=== PATIENT | female | born 1935 | race Caucasian/White ===

== ENCOUNTER → 2017-04-15 | Outpatient (CLI) | payer OTHER | LOC: BHFA 14:00 | PROVIDERS: ATTEND Internal Medicine Cardiovascular Disease | DX: I48.91 Unspecified atrial fibrillation (principal) ==

== ENCOUNTER → 2017-07-22 | Outpatient (CLI) | payer OTHER | LOC: FIMAGING 13:10 | PROVIDERS: ATTEND Internal Medicine Cardiovascular Disease | DX: Z01.818 Encounter for other preprocedural examination (principal); I51.7 Cardiomegaly; I50.9 Heart failure, unspecified ==

== ENCOUNTER 2017-07-28 11:21 | Inpatient (IN) | payer OTHER ==
[2017-07-28] MEDS ORDERED: ASPIRIN EC 325 MG TAB PO ONE ×2 (11:46→12:03)
[2017-07-28] MEDS ORDERED: diphenhydrAMINE 25 MG CAP PO ONE ×2 (11:46→12:02)
[2017-07-28] MEDS ORDERED: DIAZEPAM 5 MG TAB PO ONE (11:46)
[2017-07-28] MEDS ORDERED: FAMOTIDINE 20 MG TAB PO ONE (11:46)
[2017-07-28] MEDS ORDERED: NS 1,000 ML IV ONE (11:46)
--- NOTE | 2017-07-28 11:59 | CPEKG ---
Heart Rate: 86 RR Interval: 698 QRSD Interval: 84 QT Interval: 388 QTC Interval: 464 QRS Mico: 89 T Wave Mico: 5 EKG Severity - ABNORMAL ECG - EKG Impression: ATRIAL FIBRILLATION, V-RATE 66-95 EKG Impression: BORDERLINE RIGHT AXIS DEVIATION Electronically Signed By: Rubio Bradshaw 29-Jul-2017 08:50:50
[2017-07-28] MEDS ORDERED: FAMOTIDINE 20 MG TAB ONE (12:03)
[2017-07-28 12:23] LABS: PLATELET COUNT 246 10^3/uL (150-400)
[2017-07-28 12:32] LABS: INR 1.06 (0.83-1.16)
[2017-07-28] MEDS ORDERED: LIDOCAINE 1% 300 MG/30 ML SDV ONE (12:37)
[2017-07-28] MEDS ORDERED: fentaNYL 100 MCG/2 ML INJ ONE (12:38)
[2017-07-28] MEDS ORDERED: MIDAZOLAM 2 MG/2 ML VIAL ONE (12:38)
[2017-07-28] MEDS ORDERED: IOPAMIDOL (ISOVUE-370) 150 ML BTL IV ONE (12:38)
--- NOTE | 2017-07-28 12:58 | PDGENHP ---
History and Physical - Chief Complaint MR, TR, LSPAF - History of Present Illness 82F with severe MR,TR and LSPAF with planned OHS on 07/29 here today for risk stratification. TTE notable for severe BL atrial enlargement, LVEF of 58%, and moderate pulmonary HTN (PA pressure of 50 mmHg). The Pt was last seen in 05/17 with c/o WATSON and BLE edema and pt states these symptoms have been stable. She recently travelled to [place] with her without difficulty. She denies weakness, CP, orthopnea, PND or abdominal distension. She stopped taking Eliquis on 07/22 in preparation for surgery. History Information - Allergies/Home Medication List Allergies/Adverse Reactions: Penicillins Allergy (Mild, Verified 07/21/17 15:21) Itching latex Allergy (Verified 07/21/17 16:46) Rash lisinopril Allergy (Verified 07/21/17 16:44) DIZZINESS Sulfa (Sulfonamide Antibiotics) Allergy (Verified 07/21/17 16:44) RASH AND ITCHING Home Medications: Apixaban [Eliquis] 5 mg PO BID 07/21/17 [Last Taken Unknown] Furosemide [Lasix 20 MG (*)] 20 mg PO DAILY 07/21/17 [Last Taken Unknown] Levothyroxine Sodium 50 mcg PO Q2D 07/21/17 [Last Taken Unknown] Levothyroxine Sodium 75 mcg PO Q2D 07/21/17 [Last Taken Unknown] Metoprolol Succinate 100 mg PO DAILY 07/21/17 [Last Taken Unknown] Potassium Cl [Klor-Con] 10 meq PO DAILY 07/21/17 [Last Taken Unknown] I have personally reviewed and updated: medical history, social history, surgical history - Past Medical History Additional medical history: as per HPI, CHF class 3 with preseved LV function, mild-moderate AI - Surgical History Reports: no pertinent surgical hx - Social History Smoking Status: Never smoked Alcohol Use: None Drug Use: None Review of Systems Review of Systems: ROS: 10pt was reviewed & negative except for what was stated in HPI & below Physical Exam Physical Exam: Constitutional: no apparent distress, appears nourished, not in pain Eyes: anicteric sclera Ears, Nose, Mouth, Throat: moist mucous membranes, hearing normal, no oral mucosal ulcers Cardiovascular: irregularly irregular Respiratory: no respiratory distress, no rales or rhonchi, clear to auscultation Gastrointestinal: soft, non-tender abdomen Genitourinary: no bladder fullness Skin: warm, normal color Musculoskeletal: full muscle strength Neurologic: AAOx3, sensation intact bilaterally Psychiatric: interacting appropriately, not anxious, not encephalopathic, thought process linear Lab Data & Imaging Review 07/28/17 12:00 07/28/17 12:00 WBC 4.01 10^3/uL (3.80-9.50) 07/28/17 12:00 RBC 4.09 10^6/uL (4.18-5.33) L 07/28/17 12:00 Hgb 14.1 g/dL (12.6-16.3) 07/28/17 12:00 Hct 40.7 % (38.0-47.0) 07/28/17 12:00 MCV 99.5 fL (81.5-99.8) 07/28/17 12:00 MCH 34.5 pg (27.9-34.1) H 07/28/17 12:00 MCHC 34.6 g/dL (32.4-36.7) 07/28/17 12:00 RDW 12.1 % (11.5-15.2) 07/28/17 12:00 Plt Count 246 10^3/uL (150-400) 07/28/17 12:00 MPV 9.9 fL (8.7-11.7) 07/28/17 12:00 Neut % (Auto) 43.2 % (39.3-74.2) 07/28/17 12:00 Lymph % (Auto) 44.4 % (15.0-45.0) 07/28/17 12:00 Liberty % (Auto) 8.0 % (4.5-13.0) 07/28/17 12:00 Eos % (Auto) 3.7 % (0.6-7.6) 07/28/17 12:00 Baso % (Auto) 0.5 % (0.3-1.7) 07/28/17 12:00 Nucleat RBC Rel Count 0.0 % (0.0-0.2) 07/28/17 12:00 Absolute Neuts (auto) 1.73 10^3/uL (1.70-6.50) 07/28/17 12:00 Absolute Lymphs (auto) 1.78 10^3/uL (1.00-3.00) 07/28/17 12:00 Absolute Monos (auto) 0.32 10^3/uL (0.30-0.80) 07/28/17 12:00 Absolute Eos (auto) 0.15 10^3/uL (0.03-0.40) 07/28/17 12:00 Absolute Basos (auto) 0.02 10^3/uL (0.02-0.10) 07/28/17 12:00 Absolute Nucleated RBC 0.00 10^3/uL (0-0.01) 07/28/17 12:00 Immature Gran % 0.2 % (0.0-1.1) 07/28/17 12:00 Immature Gran # 0.01 10^3/uL (0.00-0.10) 07/28/17 12:00 PT 14.0 SEC (12.0-15.0) 07/28/17 12:00 INR 1.06 (0.83-1.16) 07/28/17 12:00 Sodium 137 mEq/L (135-145) 07/28/17 12:00 Potassium 4.3 mEq/L (3.5-5.2) 07/28/17 12:00 Chloride 98 mEq/L (97-110) 07/28/17 12:00 Carbon Dioxide 28 mEq/l (22-31) 07/28/17 12:00 Anion Gap 11 mEq/L (8-16) 07/28/17 12:00 BUN 12 mg/dL (7-23) 07/28/17 12:00 Creatinine 0.8 mg/dL (0.6-1.0) 07/28/17 12:00 Estimated GFR > 60 07/28/17 12:00 Glucose 92 mg/dL (70-100) 07/28/17 12:00 Calcium 9.5 mg/dL (8.5-10.4) 07/28/17 12:00 Magnesium 1.8 mg/dL (1.6-2.3) 07/28/17 12:00 Triglycerides 77 mg/dL (35-135) 07/28/17 12:00 Cholesterol 184 mg/dL (140-220) 07/28/17 12:00 Cholesterol Risk Factr 0.4 (0.2-1.0) 07/28/17 12:00 LDL Cholesterol, Calc 85 mg/dL (80-100) 07/28/17 12:00 LDL Risk Factor 0.4 (0.2-1.0) 07/28/17 12:00 VLDL Cholesterol 15 mg/dL (8-25) 07/28/17 12:00 Non-HDL Cholesterol 100 mg/dL (90-129) 07/28/17 12:00 HDL Cholesterol 84 mg/dL (40-85) 07/28/17 12:00 LDL/HDL Ratio 1.01 RATIO (1.00-3.22) 07/28/17 12:00 Cholesterol/HDL Ratio 2.19 RATIO (1.00-4.44) 07/28/17 12:00 Patient ABO/Rh O POSITIVE 07/28/17 12:00 Antibody Screen NEGATIVE 07/28/17 12:00 Chest X-Ray results: no infiltrate, other (cardiomegaly) Visualized and Interpreted EKG results: Yes EKG additional interpertation: AF Assessment & Plan Assessment: 82F with MR, TR, and LSPAF Plan: - MV repair/replacement, TV repair, CM 4, possible CABG on 07/29 - LHC and carotid US pending - Will place pre-op orders - NPO after midnight - Consents to be obtain in AM
--- NOTE | 2017-07-28 13:22 | PDGENHP ---
History & Physical Chief Complaint: WATSON History of Present Illness: 81 year old female admitted for [facility] today in anticipation of MVR and Tricuspid repair tomorrow with Dr. Martinez. Also hx of AFib. She stopped Eliquis on July 22, 2017 Pertinent Past, Social, Family History: PMH: Aib, HTN, Mr. TR PUlm htn. Soc: , no smoker Relevant Physical Exam: Awake, Alert Appropriate
--- NOTE | 2017-07-28 13:23 | PDPROPOC ---
Sedation Plan of Care Sedation Plan of Care: vital signs stable, mental status noted, patient educated of risks, benefits, alternatives, patient can tolerate sedation ASA Classification: ASA 2 Planned drugs: fentanyl, midazolam Mallampati Score: Class 2 Mallampati Reference Image: Patient passed 3-3-2 rule?: Yes
[2017-07-28] MEDS ORDERED: IOPAMIDOL (ISOVUE-300) 50 ML VIAL ONE (14:19)
[2017-07-28] MEDS ORDERED: ONDANSETRON 4 MG/2 ML VIAL IVP PRN (14:53)
[2017-07-28] MEDS ORDERED: ATROPINE SULFATE 1 MG/10 ML SYR IVP PRN (14:53)
[2017-07-28] MEDS ORDERED: HYDROCODONE/APAP 5/325 TAB PO PRN (14:53)
[2017-07-28] MEDS ORDERED: OXYCODONE/APAP 5/325 TAB PO PRN (14:53)
[2017-07-28] MEDS ORDERED: NITROGLYCERIN 0.4 MG BTL SL PRN (14:53)
--- NOTE | 2017-07-28 15:11 | CPIP ---
[f rep st] INVASIVE CARDIAC PROCEDURE DATE OF PROCEDURE: 07/28/2017 PROCEDURE PERFORMED: Left heart catheterization. INDICATION FOR PROCEDURE: Preoperative left heart catheterization in anticipation of mitral and tric uspid valve repair and potential Venegas or MAZE procedure in the setting of severe mitral and tricuspid regurgitation and atrial fibrillation. PROCEDURE: After informed consent was obtained, patient was brought to the cardiac catheterization l where she was prepped and draped in sterile fashion. Using 1% lidocaine, the right groin was anes thetized. Using the micropuncture modified Seldinger technique, a 6-Luxembourgish catheter was placed in th e right common femoral artery without complications. A JL4 catheter was used to take images of the l t coronary anatomy in multiple projections. Of note, there were separate ostia for the LAD as well as circumflex vessel. A JL4 catheter was exchanged over a guidewire for a JR4 catheter. JR4 cathet er was used to cannulate the right coronary artery. Images were obtained of the right coronary arter y. The JR4 catheter was exchanged over a guidewire for angled pigtail catheter. Angled pigtail cath eter was used to cross the aortic valve. LVEDP was assessed, left ventriculogram was performed. Aor tic valve gradient was assessed on pull-back. Angled pigtail catheter was removed over a guidewire w ithout complications. Imaging of the right common femoral artery sheath site was obtained demonstrat ing appropriate placement of the catheter above the bifurcation and below the inguinal ligament with no evidence of trauma to the vessel. Subsequently, Angio-Seal device was deployed successfully post procedure. FINDINGS: 1. There were separate ostia for the LAD and circumflex vessel. Left anterior descending artery giv es off multiple septal perforators. There was no evidence of coronary disease within the left anteri or descending. There are small first and second diagonal branches. 2. Circumflex vessel is a large dominant vessel with a large 1st obtuse marginal branch. There is n o evidence of coronary disease within the circumflex or large obtuse marginal branch. 3. The right coronary artery is a small nondominant vessel with no evidence of coronary disease. 4. Left ventriculogram demonstrates normal left ventricular function with LVEF 60% to 65%. HEMODYNAMICS: LVEDP 19 mmHg, LVEF 66% to 5%. Aortic valve gradient none. Right common femoral artery angiography site above the bifurcation, below the inguinal ligament and A ngio-Seal deployed successfully. CONCLUSION: 1. Normal coronary arteries. 2. Separate ostia for left anterior descending and circumflex. 3. Normal left ventricular function. 4. Left ventricular end-diastolic pressure 19 mmHg. PLAN: Patient will not require any bypass grafting in surgery tomorrow for mitral valve and tricuspi d valve procedure. /[id number]/MODL
--- NOTE | 2017-07-28 19:14 | PDMN ---
Medical Necessity Medical necessity: [facility] IP only surgery, cpt [id number], [id number], [id number] Cardiovascular Surgery
[2017-07-28] MEDS ORDERED: CHLORHEXIDINE GLUC HIBICLENS 118 ML BTL TP SCH (21:00)
[2017-07-28] MEDS: MUPIROCIN 2% 22 GM OINT NS SCH (21:22)
[2017-07-28] MEDS: SENNOSIDES/DOCUSATE SODIUM TAB PO SCH (21:23)
[2017-07-28] MEDS ORDERED: hydrALAZINE 20 MG/ML VIAL IVP PRN (21:47)
[2017-07-29] MEDS ORDERED: SODIUM BICARBONATE 20 MEQ, LIDOCAINE 1% 10 ML in NORMOSOL-R 1,000 ML MISC ONE (06:00)
[2017-07-29] MEDS ORDERED: AMINOCAPROIC ACID 5 GM/20 ML VIAL IV ONE (06:00)
[2017-07-29] MEDS ORDERED: MANNITOL 25% 12.5 GM/50 ML VIAL IVP ONE (06:00)
[2017-07-29] MEDS ORDERED: CITRATE DEXTROSE SOLN 500 ML BAG MISC ONE (06:00)
[2017-07-29] MEDS ORDERED: INSULIN REGULAR HUMAN 100 UNIT in NS 100 ML IV ONE (06:00)
[2017-07-29] MEDS ORDERED: PHENYLEPHRINE HCL 50 MG in NS 250 ML IV ONE (06:00)
[2017-07-29] MEDS ORDERED: ceFAZolin 2 GM/SWFI 2 GM/20 ML SYR IVP ONE (06:00)
[2017-07-29] MEDS ORDERED: NOREPINEPHRINE BITARTRATE 16 MG in NS 250 ML IV ONE (06:00)
[2017-07-29] MEDS ORDERED: ISOFLURANE 100 ML BOTTLE IH ONE (06:53)
[2017-07-29] MEDS: MUPIROCIN 2% 22 GM OINT NS SCH ×2 (06:57→20:51)
[2017-07-29] MEDS ORDERED: MINERAL OIL 10 ML VIAL ONE (06:58)
[2017-07-29] MEDS ORDERED: LR 1,000 ML IV ONE (07:02)
[2017-07-29] MEDS ORDERED: MIDAZOLAM 2 MG/2 ML VIAL IVP ONE (07:08)
--- NOTE | 2017-07-29 07:08 | PDANEPAE ---
ANE History of Present Illness 82 yo for mvr/tvr ANE Past Medical History - Cardiovascular History Hx Hypertension: Yes Hx Arrhythmias: Yes Hx Chest Pain: No Hx Coronary Artery / Peripheral Vascular Disease: No Hx CHF / Valvular Disease: Yes Hx Palpitations: No Cardiovascular History Comment: ATRIAL FIB DX 2015/CARDIOVERSION 03/2017. PULM HTN - Pulmonary History Hx COPD: No Hx Asthma/Reactive Airway Disease: No Hx Recent Upper Respiratory Infection: No Hx Oxygen in Use at Home: No Hx Sleep Apnea: No Sleep Apnea Screening Result - Last Documented: Negative - Neurologic History Hx Cerebrovascular Accident: No Hx Seizures: No Hx Dementia: No - Endocrine History Hx Diabetes: No Endocrine History Comment: HYPOTHYROID - Renal History Hx Renal Disorders: No - Liver History Hx Hepatic Disorders: No - Neurological & Psychiatric Hx Hx Neurological and Psychiatric Disorders: No - Cancer History Hx Cancer: No - Congenital Disorder History Hx Congenital Disorders: No - GI History Hx Gastrointestinal Disorders: No - Other Health History Other Health History: LOWER LEG EDEMA - Chronic Pain History Chronic Pain: No - Surgical History Prior Surgeries: VAGINAL HYSTERECTOMY ANE Review of Systems Review of Systems: - Exercise capacity METS (RN): 3 METS ANE Patient History - Allergies Allergies/Adverse Reactions: Penicillins Allergy (Mild, Verified 07/21/17 15:21) Itching latex Allergy (Verified 07/21/17 16:46) Rash lisinopril Allergy (Verified 07/21/17 16:44) DIZZINESS Sulfa (Sulfonamide Antibiotics) Allergy (Verified 07/21/17 16:44) RASH AND ITCHING - Home Medications Home medications: home medication list seen and reviewed Home Medications: Apixaban [Eliquis] 5 mg PO BID 07/21/17 [Last Taken Unknown] Furosemide [Lasix 20 MG (*)] 20 mg PO DAILY 07/21/17 [Last Taken Unknown] Levothyroxine Sodium 50 mcg PO Q2D 07/21/17 [Last Taken Unknown] Levothyroxine Sodium 75 mcg PO Q2D 07/21/17 [Last Taken Unknown] Metoprolol Succinate 100 mg PO DAILY 07/21/17 [Last Taken Unknown] Potassium Cl [Klor-Con] 10 meq PO DAILY 07/21/17 [Last Taken Unknown] Herbals/Supplements -Info Only 1 ea PO DAILY 07/28/17 [Last Taken Unknown] - NPO status NPO Since - Liquids (Date): 07/29/17 NPO Since - Liquids (Time): 00:00 NPO Since - Solids (Date): 07/29/17 NPO Since - Solids (Time): 00:00 - Smoking Hx Smoking Status: Never smoked - Alcohol Use Alcohol Use: None ANE Labs/Vital Signs - Labs Result Diagrams: 07/28/17 12:00 07/29/17 04:05 - Vital Signs Blood Pressure: 153/97 Heart Rate: 84 Respiratory Rate: 18 O2 Sat (%): 95 Height: 5 ft Weight: 53.8 kg ANE Physical Exam - Airway Neck exam: FROM Mallampati Score: Class 2 Mouth exam: normal dental/mouth exam - Pulmonary Pulmonary: no respiratory distress - Cardiovascular Cardiovascular: regular rate and rhythym - ASA Status ASA Status: IV ANE Anesthesia Plan Anesthesia Plan: general endotracheal anesthesia Lines/Monitors: arterial line, central line, YONG
[2017-07-29] MEDS ORDERED: MIDAZOLAM 2 MG/2 ML VIAL ONE (07:13)
[2017-07-29] MEDS ORDERED: REMIFENTANIL HCL 1 MG VIAL ONE (07:16)
[2017-07-29] MEDS ORDERED: fentaNYL 250 MCG/5 ML INJ ONE (07:17)
[2017-07-29] MEDS ORDERED: PROPOFOL/EMULSION 500 MG/50 ML BOTTLE IV ONE (07:17)
[2017-07-29] MEDS ORDERED: AMIODARONE HCL 150 MG/3 ML VIAL ONE ×2 (07:44→07:45)
[2017-07-29] MEDS ORDERED: CALCIUM CHLORIDE 1 GM/10 ML INJ ONE ×2 (07:44→07:45)
[2017-07-29] MEDS ORDERED: HEPARIN 10,000 UNIT/10 ML MDV (1,000 UNIT/ML) ONE ×2 (07:44→07:45)
[2017-07-29] MEDS ORDERED: PROTAMINE SULFATE 50 MG/5 ML VIAL IVP ONE (07:44)
[2017-07-29] MEDS ORDERED: MILRINONE/DEXTROSE/100 ML BAG IV ONE (07:44)
[2017-07-29] MEDS ORDERED: DOPamine/DEXTROSE/250 ML BAG IV ONE (07:44)
[2017-07-29] MEDS ORDERED: niCARdipine/NACL/200 ML BAG IV ONE (07:44)
[2017-07-29] MEDS ORDERED: NA BICARBONATE 50 MEQ/50 ML VIAL ONE (07:44)
[2017-07-29] MEDS ORDERED: ADENOSINE 6 MG/2 ML VIAL ONE (07:44)
[2017-07-29] MEDS ORDERED: LIDOCAINE 2% 100 MG/5 ML SYR ONE (07:45)
[2017-07-29] MEDS ORDERED: CITRATE DEXTROSE SOLN 500 ML BAG ONE (07:45)
[2017-07-29] MEDS ORDERED: ALBUMIN 5% 250 ML BOTTLE IV ONE (07:45)
[2017-07-29] MEDS ORDERED: ceFAZolin 1 GM VIAL ONE (07:45)
[2017-07-29] MEDS ORDERED: methylPREDNISolone SOD SUCC 1 GM/8 ML VIAL ONE (07:46)
[2017-07-29] MEDS ORDERED: MAGNESIUM SULFATE 1 GM/2 ML VIAL ONE (07:46)
[2017-07-29] MEDS ORDERED: DEXMEDETOMIDINE HCL 400 MCG in NS 100 ML IV SCH (09:00)
[2017-07-29] MEDS ORDERED: ONDANSETRON 4 MG/2 ML VIAL ONE (10:10)
[2017-07-29] MEDS ORDERED: DEXAMETHASONE 4 MG/ML VIAL ONE (10:10)
[2017-07-29] MEDS ORDERED: ROCURONIUM 100 MG/10 ML VIAL ONE (10:10)
[2017-07-29] MEDS ORDERED: SUGAMMADEX SODIUM 200 MG/2 ML VIAL IVP ONE (10:11)
[2017-07-29] MEDS ORDERED: DOBUTamine 500 MG in D5W 250 ML IV SCH (10:30)
[2017-07-29] MEDS ORDERED: MAGNESIUM SULF 2 GM/WATER 50 ML BAG IV ONE (11:16)
[2017-07-29] MEDS ORDERED: MAGNESIUM SULF 2 GM/WATER 50 ML IV ONE (11:51)
[2017-07-29] MEDS ORDERED: ACETAMINOPHEN 650 MG SUPP PR PRN (11:51)
[2017-07-29] MEDS ORDERED: MEPERIDINE 25 MG/ML SYR IVP PRN (11:51)
[2017-07-29] MEDS ORDERED: ONDANSETRON 4 MG/2 ML VIAL IVP PRN (11:51)
[2017-07-29] MEDS ORDERED: SODIUM CL NASAL 45 ML BTL EACHNARE PRN (11:51)
[2017-07-29] MEDS ORDERED: METOCLOPRAMIDE 10 MG/2 ML VIAL IVP PRN (11:51)
[2017-07-29] MEDS ORDERED: LACTULOSE 20 GM/30 ML UDCUP PO PRN (11:51)
[2017-07-29] MEDS ORDERED: PANTOPRAZOLE SODIUM 40 MG VIAL IVP ONE ×2 (11:51→17:30)
[2017-07-29] MEDS ORDERED: MAGNESIUM HYDROXIDE 30 ML UDCUP PO PRN (11:51)
[2017-07-29] MEDS ORDERED: CEPACOL LOZENGE PO PRN (11:51)
[2017-07-29] MEDS ORDERED: D50W 25 GM/50 ML SYR IVP PRN (11:51)
[2017-07-29] MEDS ORDERED: POLYETHYLENE GLYCOL 3350 17 GM PKT PO PRN (11:51)
[2017-07-29] MEDS ORDERED: ACETAMINOPHEN 325 MG TAB PO PRN (11:51)
[2017-07-29] MEDS ORDERED: BISACODYL 10 MG SUPP PR PRN (11:51)
[2017-07-29] MEDS ORDERED: ONDANSETRON DISINTEGRATING 4 MG TAB PO PRN (11:51)
[2017-07-29] MEDS ORDERED: NS 1,000 ML IV SCH (12:00)
[2017-07-29] MEDS ORDERED: INSULIN REGULAR HUMAN 100 UNIT in NS 100 ML IV SCH (12:00)
--- NOTE | 2017-07-29 12:41 | GOP ---
[f rep st] OPERATIVE REPORT DATE OF OPERATION: 07/29/2017 SURGEON: Acosta Martinez DO WAREHOUSE CLERK: Lewis Hensley PA-C. ANESTHESIA: Bear Vera MD. PREOPERATIVE DIAGNOSIS: 1. 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 2. Longstanding persistent atrial fibrillation. POSTOPERATIVE DIAGNOSIS: 1. 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 2. Longstanding persistent atrial fibrillation. PROCEDURE PERFORMED: 1. Venegas Maze IV with testing utilizing radiofrequency and cryoablation. 2. Mitral ring annuloplasty with a #28 Physio II annuloplasty ring. 3. Tricuspid valve annuloplasty with a #28 Magana annuloplasty ring. 4. AtriClip the left atrial appendage. FINDINGS: Patient presented with congestive heart failure and severe tricuspid and mjiigvlc-dw-csoir e mitral insufficiency with moderate aortic insufficiency. She was treated for congestive heart fail ure medically and referred for surgical intervention with a history of longstanding atrial fibrillati on. DESCRIPTION OF PROCEDURE: She was consented for surgery, brought to the operating room, intubated. Monitoring lines were placed. She was prepped and draped in sterile classical manner. Sternotomy wa s performed. The patient was heparinized, cannulated in ascending aorta and bicaval cannulas with ta pes. We then did testing on both left and right with evidence of exit and entrance conduction after cardioverting the patient to sinus rhythm. We then initiated cardiopulmonary bypass and encircled cornelius th pulmonary veins prior to arresting the heart and performed 3 multiple overlapping lesion sets that ultimately all 3 ended with less than 5 seconds until transmurally was confirmed with radiofrequency ablation. We then retested those both for entrance and exit block. We then arrested the heart with antegrade and retrograde cardioplegia, topical hypothermia, and systemic cooling. We then marked th e terminus of the circumflex and the right coronary artery for coronary sinus ablation. The left atr ium was opened. Incisions were extended a ways over toward the left superior and left inferior pulmo nary veins. We then completed those lesion sets with a radiofrequency ablation. We then performed i sthmus and coronary sinus lesions with 2 minutes of cryo each overlapping both with the retrograde re moved. We then replaced a retractor and exposed the mitral valve. It was somewhat thickened and was predominantly annular dilatation with central regurgitation. Annuloplasty sutures were placed. A 2 8 ring was sized and secured with Cor-Knots. Testing of the ventricle revealed no regurgitation. Th e left atrial incision was then closed with Prolene. A vent was placed across the mitral valve. We then retracted the heart over and excised the tip of the appendage, placed a radiofrequency clamp acr oss the atrium into the left superior pulmonary vein, and ablated until less than 5 seconds. A 35 mm AtriClip was placed and secured with 4-0 Prolene to prevent any bleeding. We then removed the cross -clamp in Trendelenburg with the LV sump on and exposed the tricuspid valve after securing caval tape s and opening the atrium in a vertical atriotomy. This was extended down to the septum, and then sup erior and inferior vena caval radiofrequency lines were performed as was a free wall line. We then c ana ablated across the tricuspid isthmus while the clamp was off. A retractor was placed and annulop lasty sutures were then placed circumferentially. The valve was slightly thickened and dilated. We sized the patient for a 28 ring, which was secured in place without difficulty utilizing Cor-Knots. Distention of the right ventricle revealed no regurgitation at that point. The right atriotomy was c losed in a two-layer fashion. The patient was kept in Trendelenburg with the LV sump on, and once sp ontaneous cardiac activity was noted to resume, we removed the LV sump. There was no further air reny ntified in Trendelenburg. The patient was then weaned in sinus rhythm without difficulty. Evaluatio n of the valves revealed no regurgitation and biventricular function remained unchanged. We watched the patient off pump for a matter of time until we were satisfied she was stable. We then reversed t he heparin with protamine. She was somewhat coagulopathic and blood products were given. We spent s ome time making sure she was dry. We opened the incision along the right pericardium above the phren ic nerve by 3 cm in order to allow any potential bleeding to drain into the right pleura and avoid ta mponade. A right pleural drain and a mediastinal drain were placed. The sternum was closed in stand ernesto fashion. Dressings were applied. Patient was returned to ICU in stable condition. /[id number]/MODL
[2017-07-29] MEDS ORDERED: niCARdipine/NACL 200 ML IV SCH (13:00)
[2017-07-29] MEDS: ALBUMIN 5% 250 ML IV PRN ×2 (13:15→13:51)
[2017-07-29] MEDS: ceFAZolin 2 GM/SWFI 2 GM/20 ML SYR IVP SCH ×2 (13:58→22:22)
[2017-07-29] MEDS ORDERED: ceFAZolin 2 GM/DEXTROSE 100 ML IV SCH (14:00)
[2017-07-29] MEDS: POTASSIUM Cl (KCl) 50 ML IV PRN ×3 (14:09→18:01)
[2017-07-29] MEDS ORDERED: NALOXONE HCL 0.4 MG/ML INJ ONE (14:27)
[2017-07-29] MEDS: KETOROLAC 15 MG/1 ML SDV IVP PRN ×2 (14:44→20:50)
[2017-07-29] MEDS ORDERED: NALOXONE HCL 0.4 MG/ML INJ IVP ONE (14:45)
--- NOTE | 2017-07-29 14:53 | POSTANESTH ---
Post Anesthetic Evaluation Cardiovascular Status: Normal, Stable Respiratory Status: Other, See Comment Level of Consciousness/Mental Status: Moderately Sleepy Nausea/Vomiting Control: Adequate, Prn Tx Ordered Complications Possibly Related to Anesthesia: None Noted (on vent)
[2017-07-29] MEDS: SENNOSIDES/DOCUSATE SODIUM TAB PO SCH ×2 (18:24→20:50)
[2017-07-29] MEDS: fentaNYL 100 MCG/2 ML INJ IVP PRN (19:23)
[2017-07-29] MEDS: HYDROCODONE/APAP 5/325 TAB PO PRN (20:49)
[2017-07-30] MEDS: fentaNYL 100 MCG/2 ML INJ IVP PRN ×2 (00:10→02:48)
[2017-07-30] MEDS: HYDROCODONE/APAP 5/325 TAB PO PRN (00:59)
[2017-07-30 04:40] LABS: PLATELET COUNT 132 10^3/uL (150-400)
[2017-07-30] MEDS: ceFAZolin 2 GM/SWFI 2 GM/20 ML SYR IVP SCH ×3 (05:29→22:08)
[2017-07-30] MEDS: HEPARIN 5,000 UNIT/0.5 ML SYR SC SCH ×3 (05:31→22:08)
[2017-07-30] MEDS: ASPIRIN 81 MG CHEWABLE TAB PO SCH ×2 (06:12→08:00)
--- NOTE | 2017-07-30 06:49 | SOAPPROG ---
DUNG Progress Note Assessment/Plan: POD #1: MV annuloplasty with #28 Physio ring, TV annuloplasty with #28 Magana MC3 ring, Venegas-Maze 4 Severe MR/TR s/p ring annuloplasties - Transfer to PCU - Coumadin as per Venegas-Maze 4 Long standing persistent atrial fibrillation s/p Venegas-Maze 4 - Currently in NSR - Continue back-up VVI pacing at 50 - Chronic AC switched from Eliquis to Coumadin for INR goal 2-3, duration as per 4 protocol Acute blood loss anemia with coagulopathy - s/p 1U platelets, 2U FFP with resolution of coagulopathy - Monitor H/H Mild-moderate aortic insufficiency - Replacement deferred, further management as per cardiology Chronic class III CHF secondary to valvular cardiomyopathy with preserved LV systolic function - BB and Lasix when appropriate Subjective: Pain well-controlled. Denies SOB. Objective: Vital Signs Temp Pulse Resp BP Pulse Ox 36.3 C 80 17 116/57 L 100 07/30/17 03:00 07/30/17 06:00 07/30/17 06:00 07/30/17 06:00 07/30/17 06:00 Laboratory Results 07/30/17 04:25 07/30/17 04:05 07/29/17 07/30/17 07/31/17 05:59 05:59 05:59 Intake Total 200 1845 Output Total 2820 Balance 200 -975 PT 14.0 SEC (12.0-15.0) 07/28/17 12:00 INR 1.06 (0.83-1.16) 07/28/17 12:00 Physical Exam - Physical Exam General Appearance: WD/WN, alert, no apparent distress EENT: No scleral icterus (R), No scleral icterus (L) Neck: normal inspection Respiratory: No respiratory distress Cardiac/Chest: regular rate, rhythm Abdomen: non-tender, soft, No distended Skin: normal color, warm/dry Extremities: No pedal edema Neuro/Psych: no motor/sensory deficits, alert, normal mood/affect, oriented x 3 ICD10 Worksheet Patient Problems: Problems Problem Status Onset Aortic insufficiency Acute Coronary artery disease (CAD) excluded Acute Diastolic congestive heart failure, NYHA class 3 Acute Longstanding persistent atrial fibrillation Acute Mitral insufficiency Acute S/P ablation of atrial fibrillation Acute S/P mitral valve repair Acute S/P tricuspid valve repair Acute Tricuspid insufficiency Acute
[2017-07-30] MEDS: MUPIROCIN 2% 22 GM OINT NS SCH ×2 (08:00→22:07)
[2017-07-30] MEDS: PANTOPRAZOLE SODIUM 40 MG TAB PO SCH (08:00)
[2017-07-30] MEDS: traMADol 50 MG TAB PO PRN ×4 (08:01→23:21)
[2017-07-30] MEDS: SENNOSIDES/DOCUSATE SODIUM TAB PO SCH ×2 (08:01→21:04)
[2017-07-30 08:23] LABS: INR 1.25 (0.83-1.16); PROTIME(PATIENT) 15.9 SEC (12.0-15.0)
--- NOTE | 2017-07-30 11:35 | ASMTCASEMG ---
Living Arrangements What is your living Answers: With Spouse arrangement? Who do you live with? Type Of Residence What kind of residence do Answers: House you live in? Discharge Plan Comments Coordination Status Comments Notes: Patient is an 82yo woman who has mitral and tricuspid insufficiency and comes for MV repair/replacement, TV repair, CM4, and possible CABG. Patient lives independently with her in [place]. OT/PT have been ordered. D/C plan TBD. CM will follow. Date Signed: 07/30/2017 11:34 AM Electronically Signed By:Aarti Mesa LCSW
[2017-07-30] MEDS ORDERED: WARFARIN SODIUM 2.5 MG TAB PO ONE (16:00)
[2017-07-30] MEDS ORDERED: ZOLPIDEM TARTRATE 5 MG TAB PO PRN (16:32)
[2017-07-30] MEDS ORDERED: NS 1,000 ML IV SCH (17:00)
[2017-07-30] MEDS: MELATONIN 3 MG TAB PO SCH (22:08)
[2017-07-31] MEDS: HEPARIN 5,000 UNIT/0.5 ML SYR SC SCH ×3 (06:16→22:10)
[2017-07-31 06:28] LABS: INR 1.36 (0.83-1.16); PROTIME(PATIENT) 16.9 SEC (12.0-15.0)
--- NOTE | 2017-07-31 06:46 | SOAPPROG ---
SOAP Progress Note Assessment/Plan: Assessment: POD#2 MV annuloplasty with #28 Physio ring, TV annuloplasty with # 28 Magana MC3 ring, Venegas-Maze 4 Severe MR/TR s/p ring annuloplasties - Coumadin as per Venegas-Maze 4 Long standing persistent atrial fibrillation s/p Venegas-Maze 4 - Holding NSR - AF prophylaxis w low dose amiodarone if tolerated - Back-up VVI pacer at 50 - Chronic AC switched from Eliquis to Coumadin for INR goal 2-3, duration as per 4 protocol Acute blood loss anemia with coagulopathy - Stable s/p 1U platelets, 2U FFP - Monitor H/H Mild-moderate aortic insufficiency - Replacement deferred, further management as per cardiology Chronic 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 Begin daily diuresis. Amiodarone 400 mg daily. Cont VVI backup for one more day. Coumadin 2.5 mg today. Inc activity as tolerated. Baseline postop echo. 07/31/17 06:45 Subjective: Slept well on Ambien, but woke up groggy and listless. Adequate analgesia. Not much appetite, sticking to protein shakes. Objective: Vital Signs Temp Pulse Resp BP Pulse Ox 36.8 C 74 16 117/68 96 07/31/17 04:00 07/31/17 04:00 07/31/17 04:00 07/31/17 04:00 07/31/17 04:00 Laboratory Results 07/31/17 06:00 07/30/17 07/31/17 08/01/17 05:59 05:59 05:59 Intake Total 1845 1675 Output Total 2820 745 Balance -975 930 PT 16.9 SEC (12.0-15.0) H 07/31/17 06:00 INR 1.36 (0.83-1.16) H 07/31/17 06:00 Holding SRw 1st degree AVB. No backup pacing overnoc. Upward creeping SBP, consistently > 110. Min suppl O2 req. CXR-> bibasilar atelectasis, tiny left apical PTX - likely hypovent Positive fluid balance with dwindling UOP. CTOP approaching removal criteria. H/H, Cr stable. Appropriate INR response to Coumadin. Physical Exam - Physical Exam General Appearance: alert, no apparent distress Respiratory: lungs clear (grossly), other (blakes x 2 to bulb suction, thin serosang drainage) Cardiac/Chest: regular rate, rhythm, other (Sternotomy CDI. A&V wires intact) Abdomen: normal bowel sounds, non-tender, soft Skin: warm/dry Extremities: swelling (1+ gen) ICD10 Worksheet Patient Problems: Problems Problem Status Onset Aortic insufficiency Acute Coronary artery disease (CAD) excluded Acute Diastolic congestive heart failure, NYHA class 3 Acute Longstanding persistent atrial fibrillation Acute Mitral insufficiency Acute S/P ablation of atrial fibrillation Acute S/P mitral valve repair Acute S/P tricuspid valve repair Acute Tricuspid insufficiency Acute
[2017-07-31 06:55] LABS: PLATELET COUNT 134 10^3/uL (150-400)
[2017-07-31] MEDS ORDERED: FUROSEMIDE 40 MG/4 ML VIAL IVP ONE ×2 (07:25→15:29)
[2017-07-31] MEDS: HYDROCODONE/APAP 5/325 TAB PO PRN ×3 (08:58→19:57)
[2017-07-31] MEDS ORDERED: LEVOTHYROXINE 50 MCG TAB PO SCH (09:00)
[2017-07-31] MEDS ORDERED: AMIODARONE HCL 200 MG TAB PO SCH (09:00)
[2017-07-31] MEDS: SENNOSIDES/DOCUSATE SODIUM TAB PO SCH ×2 (09:12→22:11)
[2017-07-31] MEDS: ASPIRIN 81 MG CHEWABLE TAB PO SCH (09:12)
[2017-07-31] MEDS: PANTOPRAZOLE SODIUM 40 MG TAB PO SCH (09:12)
[2017-07-31] MEDS: MUPIROCIN 2% 22 GM OINT NS SCH (09:13)
[2017-07-31] MEDS: LEVOTHYROXINE 50 MCG TAB PO SCH (14:57)
[2017-07-31] MEDS ORDERED: WARFARIN SODIUM 2.5 MG TAB PO ONE (16:00)
--- NOTE | 2017-07-31 16:03 | ASMTCMCOM ---
CM Note CM Note Notes: CM met w/ pt and family for dispo planning. PT is recommending HC vs SNF. OT is recommending HC. Pt would like to d/c w/ HC services. Pt and family would like to use [facility]. Referral made to [facility] and they are able to accept. CM confirmed phone number and address. CM informed pt that she would need to be home bound. Pt is in agreement. CM to follow. Plan: [facility]; PT, OT Date Signed: 07/31/2017 04:02 PM Electronically Signed By:ALEJANDRO Wagner
[2017-07-31] MEDS ORDERED: [UNRECOGNIZED DRUG - OTHER] PO PRN (18:00)
[2017-07-31] MEDS: MELATONIN 3 MG TAB PO SCH (22:10)
[2017-08-01] MEDS: HYDROCODONE/APAP 5/325 TAB PO PRN ×3 (01:45→20:58)
[2017-08-01] MEDS: HEPARIN 5,000 UNIT/0.5 ML SYR SC SCH (05:40)
[2017-08-01] MEDS: LEVOTHYROXINE 75 MCG TAB PO SCH (06:00)
[2017-08-01 06:29] LABS: INR 1.96 (0.83-1.16); PROTIME(PATIENT) 22.4 SEC (12.0-15.0)
--- NOTE | 2017-08-01 07:40 | SOAPPROG ---
SOAP Progress Note Assessment/Plan: Assessment: POD#3 MV annuloplasty with #28 Physio ring, TV annuloplasty with # 28 Magana MC3 ring, Venegas-Maze 4 Severe MR/TR s/p ring annuloplasties - Coumadin as per Venegas-Maze 4 Long standing persistent atrial fibrillation s/p Venegas-Maze 4 - Holding NSR - AF prophylaxis stopped d/t triggering of backup pacing - Chronic AC switched from Eliquis to Coumadin for INR goal 2-3, duration as per CM 4 protocol Acute blood loss anemia with coagulopathy - Stable s/p 1U platelets, 2U FFP - Lowish H/H, likely dilutional. PRBC only if sx. 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 Keep pleural drain for at least one more day. Stop SQ hep. No Coumadin today. Remove Awires. Cont VVI backup at 42. Cont Inc activity as tolerated. Wean O2. Dispo - Anticipate home +/- HHC in 2 days. 08/01/17 07:37 Subjective: Mentally clearer and peppier than yest. Tolerating light activity well. Eager to get out of hospital. Objective: Vital Signs Temp Pulse Resp BP Pulse Ox 36.4 C 72 17 137/62 H 95 08/01/17 07:33 08/01/17 07:33 08/01/17 07:33 08/01/17 07:33 08/01/17 07:33 Laboratory Results 08/01/17 05:55 08/01/17 05:55 07/31/17 08/01/17 08/02/17 05:59 05:59 05:59 Intake Total 1675 1025 Output Total 745 1110 Balance 930 -85 PT 22.4 SEC (12.0-15.0) H 08/01/17 05:55 INR 1.96 (0.83-1.16) H 08/01/17 05:55 Vpacing 50 triggered yest afternoon and amio stopped. No pacing overnoc. Robust SBPs. Excellent sats on 3 lpm, likely could wean. Balanced I/Os on lasix. Still +6 kg. Pleural tube output a bit too high to remove. Labs ok. Physical Exam - Physical Exam General Appearance: alert, no apparent distress Respiratory: crackles (bases), other (pleural tube to bulb suction, thin serosang drainage) Cardiac/Chest: regular rate, rhythm, other (Sternotomy CDI. A&V wires intact.) Abdomen: non-tender, soft Skin: warm/dry Extremities: swelling (1+ gen) ICD10 Worksheet Patient Problems: Problems Problem Status Onset Aortic insufficiency Acute Coronary artery disease (CAD) excluded Acute Diastolic congestive heart failure, NYHA class 3 Acute Longstanding persistent atrial fibrillation Acute Mitral insufficiency Acute S/P ablation of atrial fibrillation Acute S/P mitral valve repair Acute S/P tricuspid valve repair Acute Tricuspid insufficiency Acute
[2017-08-01] MEDS: PANTOPRAZOLE SODIUM 40 MG TAB PO SCH (08:22)
[2017-08-01] MEDS: SENNOSIDES/DOCUSATE SODIUM TAB PO SCH ×2 (08:22→20:57)
[2017-08-01] MEDS: ASPIRIN 81 MG CHEWABLE TAB PO SCH (08:22)
[2017-08-01] MEDS ORDERED: FUROSEMIDE 100 MG/10 ML VIAL IVP ONE (09:00)
[2017-08-01] MEDS: FUROSEMIDE 100 MG/10 ML VIAL IVP SCH (15:38)
[2017-08-01] MEDS ORDERED: hydrALAZINE 20 MG/ML VIAL IVP PRN (19:00)
[2017-08-01] MEDS ORDERED: CANN-EASE 2 GM TUBE TP PRN (19:14)
[2017-08-01] MEDS: MELATONIN 3 MG TAB PO SCH (21:02)
[2017-08-02] MEDS: LEVOTHYROXINE 50 MCG TAB PO SCH (04:56)
[2017-08-02] MEDS: HYDROCODONE/APAP 5/325 TAB PO PRN ×4 (05:26→22:16)
[2017-08-02 05:28] LABS: INR 1.73 (0.83-1.16); PROTIME(PATIENT) 20.4 SEC (12.0-15.0)
--- NOTE | 2017-08-02 07:46 | SOAPPROG ---
SOAP Progress Note Assessment/Plan: Assessment: POD#4 MV annuloplasty with #28 Physio ring, TV annuloplasty with # 28 Magana MC3 ring, Venegas-Maze 4 Severe MR/TR s/p ring annuloplasties - Coumadin as per Venegas-Maze 4 Long standing persistent atrial fibrillation s/p Venegas-Maze 4 - Holding NSR. Awires clipped. - AF prophylaxis stopped d/t triggering of backup pacing - Chronic AC switched from Eliquis to Coumadin for INR goal 2-3, duration as per CM 4 protocol Acute blood loss anemia with coagulopathy - Stable s/p 1U platelets, 2U FFP - Downward drifting H/H without evidence active bleeding. PRBC only if sx. 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 Consider transfusion if am H/H confirmed. Cont IV lasix 80 mg BID for one more day. Keep pleural drain for now. Coumadin 1 mg today. Clip Vwires. Cont wean O2. Dispo - Anticipate home +/- HHC in 1-2 days. 08/02/17 07:43 Subjective: Doing ok. No longer feels puffy. Positional changes and slow ambulation without dizziness. +BM. Believes her tube hurting her stamina more than anemia. Would like to go home tomorrow. Does not foresee any issues getting to outpt therapy or anticoag clinic. Objective: Vital Signs Temp Pulse Resp BP Pulse Ox 36.3 C 78 16 137/77 H 98 08/02/17 07:30 08/02/17 07:30 08/02/17 07:30 08/02/17 07:30 08/02/17 07:30 Laboratory Results 08/02/17 05:01 08/02/17 05:01 08/01/17 08/02/17 08/03/17 05:59 05:59 05:59 Intake Total 1025 1770 Output Total 1110 2585 Balance -85 -815 PT 20.4 SEC (12.0-15.0) H 08/02/17 05:01 INR 1.73 (0.83-1.16) H 08/02/17 05:01 Holding SR > 64. No backup pacing triggered. Robust SBPs. Min suppl O2 req. Cont improvement fluid balance. CTOP still a bit too high to pull. INR dropping as expected. Surprisingly low H/H. ? authenticity. - Pending Discharge Pending Discharge Within 24 Hours: Yes Pending Discharge Date: 08/03/17 Pending Discharge Time: 11:00 Physical Exam - Physical Exam General Appearance: alert, no apparent distress Respiratory: crackles (rt base), other (shekhar to bulb suction, mostly serous drainage) Cardiac/Chest: regular rate, rhythm, other (Sternotomy CDI. Vwires intact) Abdomen: non-tender, soft Skin: warm/dry Extremities: swelling (trace) ICD10 Worksheet Patient Problems: Problems Problem Status Onset Aortic insufficiency Acute Coronary artery disease (CAD) excluded Acute Diastolic congestive heart failure, NYHA class 3 Acute Longstanding persistent atrial fibrillation Acute Mitral insufficiency Acute S/P ablation of atrial fibrillation Acute S/P mitral valve repair Acute S/P tricuspid valve repair Acute Tricuspid insufficiency Acute
[2017-08-02] MEDS: PANTOPRAZOLE SODIUM 40 MG TAB PO SCH (08:09)
[2017-08-02] MEDS: LEVOTHYROXINE 75 MCG TAB PO SCH (08:09)
[2017-08-02] MEDS: FUROSEMIDE 100 MG/10 ML VIAL IVP SCH ×2 (08:09→15:06)
[2017-08-02] MEDS: SENNOSIDES/DOCUSATE SODIUM TAB PO SCH (08:10)
[2017-08-02] MEDS: ASPIRIN 81 MG CHEWABLE TAB PO SCH (08:42)
[2017-08-02] MEDS: POTASSIUM CL 20 MEQ TAB PO SCH ×2 (15:06→22:15)
[2017-08-02] MEDS ORDERED: WARFARIN SODIUM 1 MG TAB PO ONE (16:00)
[2017-08-02] MEDS ORDERED: SENNOSIDES/DOCUSATE SODIUM TAB PO PRN (21:00)
[2017-08-02] MEDS: MELATONIN 3 MG TAB PO SCH (22:14)
--- NOTE | 2017-08-03 07:00 | SOAPPROG ---
SOAP Progress Note Assessment/Plan: Assessment: POD#5 MV annuloplasty with #28 Physio ring, TV annuloplasty with # 28 Magana MC3 ring, Venegas-Maze 4 Severe MR/TR s/p ring annuloplasties - Coumadin as per Venegas-Maze 4 Long standing persistent atrial fibrillation s/p Venegas-Maze 4 - Holding NSR. A&V wires clipped. - AF prophylaxis stopped d/t triggering of backup pacing - Chronic AC switched from Eliquis to Coumadin for INR goal 2-3, duration as per 4 protocol Acute blood loss anemia with coagulopathy - Stable s/p 1U platelets, 2U FFP - Downward drifting H/H without evidence active bleeding or overt symptoms. Mild-moderate aortic insufficiency - Replacement deferred - Mild AI by baseline postop echo. Surveillance per cardiology Chronic class III dCHF secondary to valvular cardiomyopathy - Preserved BiV systolic function by baseline postop echo - Active diuresis in progress - CTs out - BB when appropriate HTN - Home control with Toprol and Lasix - Postop management primarily with Lasix. - Plan interim ARB until BB resumed. Plan: Transfuse 1u PRBC. Start FeSO4. Decr Lasix to 40 mg BID. Start Losartan 25 mg daily. Coumadin pending INR result. Dispo - Anticipate home without services later today. 08/03/17 06:58 Subjective: A little weak and shakey by day's end yest, peppier this am. Walked a full lap around cheema with reassuring stamina. Eager to go home. Objective: Vital Signs Temp Pulse Resp BP Pulse Ox 36.8 C 88 18 141/79 H 97 08/03/17 04:00 08/03/17 04:00 08/03/17 04:00 08/03/17 04:00 08/03/17 04:00 Laboratory Results 08/03/17 03:50 08/03/17 03:50 08/02/17 08/03/17 08/04/17 05:59 05:59 05:59 Intake Total 1770 1570 Output Total 3601 5622 450 Balance -815 -345 -450 PT 20.4 SEC (12.0-15.0) H 08/02/17 05:01 INR 1.73 (0.83-1.16) H 08/02/17 05:01 HR stable. SBPs < 150. Desats with activity. Excellent diuresis, approaching admit wt. H/H surprisingly low. ? credible. Physical Exam - Physical Exam General Appearance: alert, no apparent distress Respiratory: lungs clear (grossly) Cardiac/Chest: regular rate, rhythm, other (Sternum grossly stable. Sternotomy and CT sites CDI.) Abdomen: non-tender, soft Skin: warm/dry Extremities: other (no visible edema) ICD10 Worksheet Patient Problems: Problems Problem Status Onset Aortic insufficiency Acute Coronary artery disease (CAD) excluded Acute Diastolic congestive heart failure, NYHA class 3 Acute Longstanding persistent atrial fibrillation Acute Mitral insufficiency Acute S/P ablation of atrial fibrillation Acute S/P mitral valve repair Acute S/P tricuspid valve repair Acute Tricuspid insufficiency Acute
[2017-08-03] MEDS: PANTOPRAZOLE SODIUM 40 MG TAB PO SCH (08:26)
[2017-08-03] MEDS: ASPIRIN 81 MG CHEWABLE TAB PO SCH (08:27)
[2017-08-03 08:40] LABS: INR 1.26 (0.83-1.16)
[2017-08-03] MEDS ORDERED: FUROSEMIDE 40 MG/4 ML VIAL IVP ONE (09:00)
[2017-08-03] MEDS ORDERED: LOSARTAN POTASSIUM 25 MG TAB PO SCH (09:00)
[2017-08-03] MEDS ORDERED: POTASSIUM CL 10 MEQ TAB PO SCH (09:00)
[2017-08-03] MEDS ORDERED: FERROUS SULFATE 325 MG TAB PO SCH (09:00)
--- NOTE | 2017-08-03 09:16 | ASMTCMCOM ---
CM Note CM Note Notes: 08/03/2017 Case Management Note Discussed pt with Olive Tobin this morning. Per Olive anticipating that pt will d/c without any services. Case Management d/c poc: independent with follow up as directed. Case Management to follow. Date Signed: 08/03/2017 09:15 AM Electronically Signed By:Charlotte Jaquez RN
--- NOTE | 2017-08-03 09:39 | PDHOMEO2F ---
Home Oxygen Face to Face Home Orders: I certify that a physician or a nurse practitioner or physician's environmental engineering assistant has had a [id number] encounter with this patient on the date of this order due to the diagnosis listed, which relates to the primary reason the patient requires home oxygen. Alternative treatments have been tried, or considered, and deemed ineffective. It is anticipated that supplemental oxygen will result in improvement with treatment. Home oxygen qualifying diagnosis: valvular cardiomyopathy Home oxygen secondary diagnosis: chronic diastolic CHF SpO2 on room air (%): 82 Frequency of home oxygen needed: continuous Home oxygen liters per minute: 1 rest, 2-3 with activity Home oxygen delivery device: nasal cannula Concentrator: Yes E-tanks for mobility and back up: Yes If ordering portable O2, is the patient mobile in the home?: Yes I certify that, based on these findings, the home oxygen is medically necessary for this patient for the following length of time. Length of time home oxygen needed: 1 month
[2017-08-03] MEDS ORDERED: WARFARIN SODIUM 2 MG TAB PO ONE (12:00)
--- NOTE | 2017-08-03 12:15 | ASMTLACE ---
LACE Length of stay for Answers: 4-6 days current admission Acuity / Level of Answers: Yes Care: Did the patient have an inpatient admission? Comorbidities - select Answers: Congestive heart failure all that apply Other Notes: HTN # of Emergency department Answers: 0 visits in the last 6 months Score: 10 Date Signed: 08/03/2017 12:15 PM Electronically Signed By:Charlotte Jaquez RN
[2017-08-03 12:36] VITALS: BP 131/82
--- NOTE | 2017-08-03 15:06 | PDDCSUM ---
Discharge Summary Discharge Summary: DATE OF ADMISSION: 07/28/17 DATE OF DISCHARGE: 08/03/17 DISPOSITION: Home, self-care PRINCIPAL ADMISSION DIAGNOSES: 1. Symptomatic severe mitral regurgitation 2. Secondary tricuspid regurgitation 3. Longstanding persistent atrial fibrillation PRINCIPAL DISCHARGE DIAGNOSES: 1. 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 Coronary artery disease excluded 3. Carotid atherosclerosis 4. Status post mitral valve annuloplasty 5. Status post tricuspid valve annuloplasty 6. Status post Venegas-Maze IV procedure with clip exclusion of the left atrial appendage 7. Acute expected blood loss anemia HISTORY OF PRESENT ILLNESS: 82 yo female with longstanding persistent atrial fibrillation and progressive valvular insufficiency associated with class III diastolic CHF, admitted in advance of scheduled cardiac surgery to complete risk stratification. Preop imaging negative for CAD or prohibitive neurologic risk. PERTINENT PAST MEDICAL HISTORY: Chronic anticoagulation on Eliquis, hypothyroidism, HTN MEDICATIONS ON ADMISSION: Metoprolol succinate 100 mg daily, Eliquis 5 mg BID, Lasix 20 mg daily, Klor- Con 10 meq daily, Levothyroxine 50 mcg alternating with 75 mcg every other day, Melatonin 1 mg hs, herbal supplement daily ALLERGIES/SENSITIVITIES: PCN causing itchiness, Latex causing a rash, Lisinopril causing dizziness, Sulfa causing a rash and itchiness CONSULTANTS: none PROCEDURES/IMAGIN/1 (Asim): Left heart catheterization with selective coronary angiography and left ventriculogram: Left dominant coronary system. Separate ostia for the LAD and LCX. No angiographic evidence of CAD. LVEDP 19. LVEF 60-65%. 07/28 Carotid Ultrasound: Intimal thickening and mild plaquing of carotid bulbs, right > left. 07/29 (Juan): Mitral valve annuloplasty with a 28 mm Magana Physio ring. Tricuspid valve annuloplasty with a 28 mm Magana MC3 ring. Venegas-Maze IV procedure utilizing cryothermy, bipolar radiofrequency and AtriClip exclusion of the left atrial appendage. 07/31 (Asim): Transthoracic echocardiogram ABBREVIATED HOSPITAL COURSE BY ACTIVE PROBLEM LIST: 1. Sx severe MR - Amenable to ring annuloplasty. Antithrombotic prophylaxis as per Maze. 2. Secondary TR - Amenable to ring annuloplasty. Antithrombotic prophylaxis as per Maze. 3. Long standing persistent atrial fibrillation/chronically anticoagulated with Eliquis. Post Maze rhythm JR/SR. Antinodals avoided d/t early postop JR requiring pacing and recurrrent triggering of backup pacing on amiodarone. Antithrombotic prophylaxis switched to Coumadin, target INR 2-3, duration as per Maze protocol. 4. Chronic class III dCHF - Stable early postop course. No vasoactive support. Moderate volume overload actively diuresed with stable renal fx. BB avoided d/t inducible bradycardia. Preserved BiV systolic function by baseline postop echo. 5. Acute expected blood loss anemia with coagulopathy - Stable s/p 1u PRBC, 1u Platelets and 2U FFP. Low H/H well tolerated. Started on Fe suppl. 6. HTN - Postop management primarily with Lasix. BB replaced by ARB until rhythm more stable. 7. Hx mild-moderate aortic insufficiency - Replacement deferred. Degree of insufficiency mild by baseline postop echo. Surveillance per cardiology. DISCHARGE CLINICAL INFORMATION: Sternum grossly stable. Sternotomy CDI, sutured, +Dermabond. HR 80s-90s, sinus, first degree AVB. SBP 130s. SpO2 82% RA, correcting to > 92% on 1 Lpm O2 rest & 2 Lpm activity. Wt 2.5 kg above admission at 54.4 kilos. WBC 6, Hgb 7.1 (prior to 1u PRBC), HCT 20.4 (prior to 1u PRBC), Plt 184, Na 133 , K 4.1, Cr 1.0 Coumadin flowsheet: Date INR mg 5/3 1.25 2.5 5/4 1.36 2.5 5/5 1.96 none 5/6 1.73 1 5 1.26 2 DISCHARGE MEDICATIONS: As on admission with the following adjustments: 1. Hold Eliquis. 2. Hold metoprolol succinate. 3. Increase Lasix to 40 mg BID. 4. Increase Klor-Con to 10meq BID. NEW prescriptions: 1. Losartan 25 mg daily. 2. Coumadin 2 mg daily or as directed by INR/anticoagulation clinic. 3. Ferrous sulfate 325 mg daily. 4. [place] 5/325 one-half to one tab q 6-8 hrs prn incisional discomfort. 5. Oxygen @ 1 Lpm rest and 2 Lpm activity or as directed by SpO2. 6. OTC: ASA 81 mg daily. Hold for INR > 3. FOLLOW UP APPOINTMENTS: 1. CV surgery: with Dr Martinez at [facility] on 08/11 at 9:30 am. 2. Cardiology: with Dr Smyth at [facility] within 4-6 weeks. Appointment to be established during surgical visit. 3. Anticoagulation clinic: [facility] on 08/05 at 3:00 pm. FOLLOW UP TESTIN. CBC and BMP on 08/11 prior to surgical appt. 2. CXR on 08/11 prior to surgical appointment.
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
--- NOTE | 2017-08-03 16:16 | ASDISCHSUM ---
Discharge Information Plan Status:Home with No Needs Medically Cleared to Leave:08/03/2017 Discharge Date:08/03/2017 03:12 PM CM D/C Disposition:Home, Routine, Self-Care ADT D/C Disposition:Home, Routine, Self-Care Projected Discharge Date:07/31/2017 11:00 AM Transportation at D/C: Discharge Delay Reason: Follow-Up Date:07/31/2017 11:00 AM Discharge Slot: Final Diagnosis: Placement Information Referral Type:*Home Health Care Services Referral ID:[id number] Provider Name: Address 1: Phone Number: Address 2: Fax Number: City: Selection Factors: State: Patient Contact Information Contact Name:JORGE Relationship: Address:[address] Work Phone: [facility] Phone: [facility] Code:[place] [address] Email: Financial Information Financial Class:Medicare Primary Plan Desc:MEDICARE INPATIENT Primary Plan Number:[id number] Secondary Plan Desc:[facility] Secondary Plan Number:[id number] Assessment Information LACE LACE Length of stay for Answers: 4-6 days current admission Acuity / Level of Answers: Yes Care: Did the patient have an inpatient admission? Comorbidities - select Answers: Congestive heart failure all that apply Other Notes: HTN # of Emergency department Answers: 0 visits in the last 6 months Score: 10 Date Signed: 08/03/2017 12:15 PM Electronically Signed By:Charlotte Jaquez RN [facility] Initial CM Assessment Living Arrangements What is your living Answers: With Spouse arrangement? Who do you live with? Type Of Residence What kind of residence do Answers: House you live in? Discharge Plan Comments Coordination Status Comments Notes: Patient is an 82yo woman who has mitral and tricuspid insufficiency and comes for MV repair/replacement, TV repair, CM4, and possible CABG. Patient lives independently with her in [place]. OT/PT have been ordered. D/C plan TBD. CM will follow. Date Signed: 07/30/2017 11:34 AM Electronically Signed By:Aarti Mesa LCSW [facility] CM Progress Note CM Note CM Note Notes: CM met w/ pt and family for dispo planning. PT is recommending HC vs SNF. OT is recommending HC. Pt would like to d/c w/ HC services. Pt and family would like to use [facility]. Referral made to [facility] and they are able to accept. CM confirmed phone number and address. CM informed pt that she would need to be home bound. Pt is in agreement. CM to follow. Plan: [facility]; PT, OT Date Signed: 07/31/2017 04:02 PM Electronically Signed By:ALEJANDRO Wagner [facility] CM Progress Note CM Note CM Note Notes: 08/03/2017 Case Management Note Discussed pt with Olive Tobin this morning. Per Olive anticipating that pt will d/c without any services. Case Management d/c poc: independent with follow up as directed. Case Management to follow. Date Signed: 08/03/2017 09:15 AM Electronically Signed By:Charlotte Jaquez, RN Case Management Discharge Plan Note Case Management Discharge Discharge Order Complete? Answers: Yes Patient to Obtain Answers: via Family Medications Transportation Arranged Answers: Family/Friends Discharge Comments Notes: 08/03/2017 Case Management Note Pt to discharge independent with follow up as directed per Olive Tobin. Date Signed: 08/03/2017 04:15 PM Electronically Signed By:Charlotte Jaquez RN Intervention Information Intervention Type:*IM-Signed Date of Service:08/03/2017 01:43 PM Patient Type:Inpatient Staff Member:Alpa Rai Hours: Discipline: Severity: Comment:
== END 2017-08-03 15:12 | disposition home or self-care (01) | DRG 217 ==
LOC: FCATH 11:21 → UNDOADMIN 11:21 → F2N 11:21 → F2W 13:23 → F2N 07-29 07:00 → EDSTATUS 07-29 07:15 → F2N 07-29 11:59 → F2W 07-30 12:25
PROVIDERS: ADMIT Thoracic Surgery (Cardiothoracic Vascular Surgery); ATTEND Thoracic Surgery (Cardiothoracic Vascular Surgery)
PROC: B2111ZZ Fluoroscopy of Multiple Coronary Arteries using Low Osmolar Contrast (ICD-10-PCS; 2017-07-28)
PROC: B2151ZZ Fluoroscopy of Left Heart using Low Osmolar Contrast (ICD-10-PCS; 2017-07-28)
PROC: 4A023N7 Measurement of Cardiac Sampling and Pressure, Left Heart, Percutaneous Approach (ICD-10-PCS; 2017-07-28)
PROC: 02UJ0JZ Supplement Tricuspid Valve with Synthetic Substitute, Open Approach (ICD-10-PCS; principal; 2017-07-29 07:15)
PROC: 02580ZZ Destruction of Conduction Mechanism, Open Approach (ICD-10-PCS; principal; 2017-07-29 07:15)
PROC: 5A1221Z Performance of Cardiac Output, Continuous (ICD-10-PCS; principal; 2017-07-29 07:15)
PROC: 02L70CK Occlusion of Left Atrial Appendage with Extraluminal Device, Open Approach (ICD-10-PCS; principal; 2017-07-29 07:15)
PROC: 02UG0JZ Supplement Mitral Valve with Synthetic Substitute, Open Approach (ICD-10-PCS; principal; 2017-07-29 07:15)
PROC: B246ZZ4 Ultrasonography of Right and Left Heart, Transesophageal (ICD-10-PCS; 2017-07-31)
PROC: 30233R1 Transfusion of Nonautologous Platelets into Peripheral Vein, Percutaneous Approach (ICD-10-PCS; 2017-07-31)
PROC: 30233K1 Transfusion of Nonautologous Frozen Plasma into Peripheral Vein, Percutaneous Approach (ICD-10-PCS; 2017-07-31)
DX: I08.3 Combined rheumatic disorders of mitral, aortic and tricuspid valves (principal); D62 Acute posthemorrhagic anemia; I50.32 Chronic diastolic (congestive) heart failure; I48.1 Persistent atrial fibrillation; I27.20 Pulmonary hypertension, unspecified; E03.9 Hypothyroidism, unspecified; Z79.01 Long term (current) use of anticoagulants
CPT/HCPCS: 82947-QW; 97116-GP; 97162-GP; 97165-GO; 97530-GO; 97530-GP; 97535-GO; C1760; G8978-GP-CK; G8979-GP-CJ; G8987-GO-CJ; G8988-GO-CI; G8989-GO-CI; J0153; J0282; J0360; J0690; J1100; J1250; J1265; J1644; J1815; J1885; J1940; J2001; J2150; J2250; J2260; J2270; J2310; J2370; J2405; J2704; J2720; J2930; J3010; J3475; J3480; J7060; P9016; P9017; P9021; P9035; P9041; Q9967

== ENCOUNTER → 2017-08-10 | Outpatient (CLI) | payer OTHER | LOC: FIMAGING 12:14 | PROVIDERS: ATTEND Thoracic Surgery (Cardiothoracic Vascular Surgery) | DX: J90 Pleural effusion, not elsewhere classified (principal); I51.7 Cardiomegaly; Z95.2 Presence of prosthetic heart valve ==

== ENCOUNTER → 2017-08-17 | Outpatient (CLI) | payer OTHER | LOC: FIMAGING 15:18 | PROVIDERS: ATTEND Thoracic Surgery (Cardiothoracic Vascular Surgery) | DX: Z09 Encounter for follow-up examination after completed treatment for conditions other than malignant neoplasm (principal); J90 Pleural effusion, not elsewhere classified; Z95.2 Presence of prosthetic heart valve; Z86.79 Personal history of other diseases of the circulatory system | CPT/HCPCS: G0463 ==

== ENCOUNTER → 2017-09-03 | Outpatient (CLI) | payer OTHER | LOC: FIMAGING 13:03 | PROVIDERS: ATTEND Thoracic Surgery (Cardiothoracic Vascular Surgery) | DX: J90 Pleural effusion, not elsewhere classified (principal); J98.11 Atelectasis; Z98.890 Other specified postprocedural states ==

== ENCOUNTER → 2017-10-06 | Outpatient (CLI) | payer OTHER | LOC: BHFA 15:45 | PROVIDERS: ATTEND Internal Medicine Interventional Cardiology | DX: I48.91 Unspecified atrial fibrillation (principal); I34.0 Nonrheumatic mitral (valve) insufficiency; I27.20 Pulmonary hypertension, unspecified ==

== ENCOUNTER → 2018-02-08 | Outpatient (CLI) | payer OTHER | LOC: BHFA 14:00 | PROVIDERS: ATTEND Internal Medicine Interventional Cardiology | DX: I48.91 Unspecified atrial fibrillation (principal); I34.0 Nonrheumatic mitral (valve) insufficiency; I27.20 Pulmonary hypertension, unspecified ==

== ENCOUNTER → 2018-03-02 | Outpatient (CLI) | payer OTHER | LOC: BHFA 11:30 | PROVIDERS: ATTEND Thoracic Surgery (Cardiothoracic Vascular Surgery) | DX: I48.91 Unspecified atrial fibrillation (principal); Z98.890 Other specified postprocedural states ==

== ENCOUNTER → 2018-04-13 | Outpatient (CLI) | payer OTHER | LOC: FIMAGING 12:35 | PROVIDERS: ATTEND Internal Medicine | DX: Z13.820 Encounter for screening for osteoporosis (principal); M85.89 Other specified disorders of bone density and structure, multiple sites; Z78.0 Asymptomatic menopausal state ==